=== PATIENT | female | born 1945 | race Caucasian/White ===

== ENCOUNTER 2018-10-22 09:35 | Inpatient (IN) | payer OTHER ==
[~2018-10-22] VITALS: Ht 172.7 cm; Wt 79.4 kg
--- NOTE | ~2018-10-22 | ST ---
[place], [place] EXERCISE STRESS TEST REPORT NAME: REINA CAPPS [facility] #: [id number] UNIT #: [id number] ROOM: 406 DOCTOR: EFREN BARNEY MD BIRTHDATE: [birth year] DOS: REASON FOR TESTING: Evaluation of chest pain. DESCRIPTION: After explaining procedure and obtaining consent, the patient was subjected to Lexiscan infusion. Resting heart rate was 67 with a blood pressure of 148/84. EKG showed sinus rhythm, nonspecific ST-T wave changes. The patient did have PACs on the monitor during the Lexiscan infusion. After the infusion was over, she was injected with Cardiolite and stress images were taken. The patient did complain of some chest heaviness and headaches during the infusion. No ST-T wave changes were noted. ASSESSMENT AND PLAN: Lexiscan stress test without any ST-T wave changes or arrhythmias. Cardiolite images pending. EFREN BARNEY MD CM:STRESS:EXERCISE STRESS TEST REPORT [id number] EFREN BARNEY MD
--- NOTE | ~2018-10-22 | EKG ---
[place], [place] ELECTROCARDIOGRAM REPORT NAME: REINA CAPPS UNIT #: [id number] ROOM: 406 DOCTOR: CLAIRE DRAFT REPORT BIRTHDATE: [birth year] [facility] Test Date: 2018-10-22 Test Time: 14:59:40 Pat Name: REINA CAPPS Department: Room: 406 Gender: F Hunter Guide: Viktoria Cabrera : 1945 Requested By: KATIE PARDO Order Number: [id number] Reading MD: Olesya Smith MD Measurements Intervals [place] Rate: 78 P: 25 [place]: 153 QRS: -58 QRSD: 85 T: 55 QT: 349 QTc: 398 Interpretive Statements Sinus rhythm Atrial premature complexes Abnormal R-wave progression, late transition Inferior infarct, old No previous ECG available for comparison Electronically Signed On 10-22-2018 17:04:02 PST by Olesya Smith MD CM:EKGRPT:ELECTROCARDIOGRAM REPORT [id number] KATIE RANGEL DRAFT REPORT KATIE PARDO MD
--- NOTE | ~2018-10-22 | WRIGHTHP ---
[place], [place] PATIENT HISTORY AND PHYSICAL EXAM NAME: REINA CAPPS [facility] #: [id number] UNIT #: [id number] ROOM: 406 DOCTOR: EFREN BARNEY MD BIRTHDATE: [birth year] DOS: 10/22/2018 HISTORY OF PRESENT ILLNESS: The patient is 73 years old, very well known to us. The patient states in the morning when she woke up, she noticed a burning feeling in her chest and in her back and she also became quite diaphoretic and had discussed a lot of concern and so she decided to come into the Emergency Room. She has had a slight cough, which is nonproductive. She has been multiple antibiotics recently. She denies having any retrosternal chest pain this morning. Does not have any shortness of breath or palpitations. She has a cough, which is slightly moist sounding. PAST MEDICAL HISTORY: Significant for: 1. Fibromyalgia. 2. Chronic cervical spinal stenosis. 3. Generalized anxiety disorder. 4. Benign hypertension. 5. Asthma, mild, intermittent. 6. History of Parks's esophagus. MEDICATIONS: She is currently on are Ultracet 37.5 mg 3 times a day p.r.n., Zyrtec 10 daily, lisinopril 30 daily, lorazepam 0.5 mg b.i.d. p.r.n., omeprazole 20 daily. SOCIAL HISTORY: Nonsmoker, does not use any alcohol. PHYSICAL EXAMINATION: GENERAL: She is awake, alert and oriented. VITAL SIGNS: Blood pressure was 170/100 when she arrived. The blood pressures have come down and normalized, pulse of 60, respirations 16, temperature 97.5. LUNGS: Diminished breath sounds. No wheezes, rales or rhonchi heard this morning. HEART: Regular. ABDOMEN: Obese, soft, nontender. EXTREMITIES: Without any edema. LABORATORY DATA: EKG showed sinus rhythm, nonspecific ST-T wave changes. White cell count is 8.3, hemoglobin 14.7. Protime within normal limits. Rapid flu negative. Comprehensive within normal limits. Chest x-ray, no pathology. ASSESSMENT AND PLAN: 1. The patient presents with precordial chest pain. Risk factors being hypertension. The patient is admitted. Rule out [place] protocol was ordered, since ruled out the patient is scheduled for a stress test. 2. Cough with burning discomfort in her chest with the recent usage of antibiotics. A CT of the chest will be ordered so far and has come back negative. The patient does have mild intermittent asthma, but this is not causing any exacerbation right now. If the stress test comes back negative, the patient will be discharged home. Follow up as an outpatient. No new prescriptions have been given. [place], [place] PATIENT HISTORY AND PHYSICAL EXAM NAME: REINA CAPPS UNIT #: [id number] ROOM: [facility] DOCTOR: EFREN BARNEY MD BIRTHDATE: [birth year] EFREN BARNEY MD CM:HISPHYS:PATIENT HISTORY AND PHYSICAL EXAMINATION 5 4 EFREN BARNEY MD 10/23/18924 interface
--- NOTE | ~2018-10-22 | EKG ---
[place], [place] ELECTROCARDIOGRAM REPORT NAME: REINA CAPPS UNIT #: [id number] ROOM: 406 DOCTOR: CLAIRE DRAFT REPORT BIRTHDATE: [birth year] [facility] Test Date: 2018-10-22 Test Time: 10:05:04 Pat Name: REINA CAPPS Department: Room: 406 Gender: F [employer]: : 1945 Requested By: GIN BOSS Order Number: [id number] Reading MD: Olesya Smith MD Measurements Intervals [place] Rate: 75 P: 50 [place]: 156 QRS: -67 QRSD: 89 T: 65 QT: 368 QTc: 411 Interpretive Statements Sinus rhythm Probable left atrial enlargement Abnormal R-wave progression, late transition Inferior infarct, old Baseline wander in lead(s) II No previous ECG available for comparison Electronically Signed On 10-22-2018 17:03:11 PST by Olesya Smith MD CM:EKGRPT:ELECTROCARDIOGRAM REPORT [id number] GIN SHIPMAN DRAFT REPORT GIN BOSS DO
[~2018-10-22 09:35] MED LIST: LEVOFLOXACIN500 MG PO; ZOFRAN4 MG PO
[2018-10-22 09:37] VITALS: BP 198/88
[2018-10-22 10:13] LABS: BASO % 0.4 % (0.0-1.0); EOS % 0.2 % (1.0-4.0); HEMATOCRIT 43.5 % (37.0-47.0); HEMOGLOBIN 14.7 g/dl (12.0-16.0); LYMPH # 1.7 10*3/uL (1.3-4.4); LYMPH % 19.9 % (27.0-41.0); MEAN CELL VOLUME 90.4 fl (81.0-99.0); MEAN CORPUSCULAR HGB 30.6 pg (27.0-31.0); MEAN CORPUSCULAR HGB CONC 33.8 g/dl (33.0-37.0); MEAN PLATELET VOLUME 9.3 fl (9.6-12.3); MONO # 0.7 10*3/uL (0.1-1.0); NEUT # 5.9 10*3/uL (2.3-7.9); NEUT % 71.3 % (47.0-73.0); PLATELET COUNT AUTOMATED 259 10*3/uL (130-400); RED BLOOD COUNT 4.81 10*6/uL (4.10-5.10); RED CELL DISTRI WIDTH 13.3 % (0-14.5); WHITE BLOOD COUNT 8.3 10*3/uL (4.8-10.8)
[2018-10-22 10:21] LABS: ACT PARTIAL THROMBO TIME 24.3 SECONDS (20.8-31.5); INTERNATIONAL NORM RATIO 0.9 (2.0-3.5)
[2018-10-22 10:29] LABS: BILIRUBIN NEGATIVE (NEGATIVE); BLOOD 1+ (NEGATIVE); CLARITY CLEAR (CLEAR); COLOR YELLOW (YELLOW); GLUCOSE NEGATIVE (NEGATIVE); KETONE TRACE (NEGATIVE); LEUKO ESTERASE NEGATIVE (NEGATIVE); NITRITE NEGATIVE (NEGATIVE); PH 6.5 (5.0-9.0); SPECIFIC GRAVITY 1.015 (1.005-1.030); UROBILINOGEN 0.2 E.U./dl (0.2-1.0)
[2018-10-22 10:36] LABS: ALBUMIN 3.9 gm/dl (3.1-4.5); ALKALINE PHOSPHATASE 54 U/L (45-117); BUN 10 mg/dl (7-24); CHLORIDE 97 mmol/L (98-107); CREATININE 0.71 mg/dL (0.55-1.02); POTASSIUM 3.7 mmol/L (3.5-5.1); SGOT/AST 12 IU/L (3-35); SGPT/ALT 14 U/L (12-78); SODIUM 132 mmol/L (136-145); TOTAL PROTEIN 7.2 gm/dL (6.4-8.2)
[2018-10-22 10:41] LABS: TROPONIN I < 0.015 ng/ml (<0.045)
[2018-10-22 10:52] LABS: RBC 16-20 rbc/hpf (0-2)
[2018-10-22 10:53] LABS: BACTERIA TRACE; EPITHELIAL CELLS 0-2; MUCOUS TRACE
[2018-10-22 12:00] VITALS: BP 170/100; BP 184/86; BP 184/88
[2018-10-22] MEDS ORDERED: ATIVAN0.5 MG PO (12:42)
[2018-10-22] MEDS ORDERED: LISINOPRIL30 MG PO (12:42)
[2018-10-22] MEDS ORDERED: ULTRACET 325 MG1 TA1 PO (12:43)
[2018-10-22] MEDS ORDERED: ZYRTEC10 MG PO (12:43)
[2018-10-22] MEDS ORDERED: OMEPRAZOLE20 M2 PO (12:43)
[2018-10-22 14:46] VITALS: BP 136/70
[2018-10-22 16:00] VITALS: BP 110/64
[2018-10-22 20:00] VITALS: BP 92/50
[2018-10-23] VITALS: BP 113/63
[2018-10-23 08:00] VITALS: BP 152/83
[2018-10-23 12:00] VITALS: BP 127/76; BP 130/72
== END 2018-10-23 16:24 | disposition home or self-care (01) | DRG 313 ==
LOC: ED 09:35 → 4E 11:09 → EDHOLD 11:09 → 4E 11:43
PROVIDERS: Emergency Medicine; Student in an Organized Health Care Education/Training Program; ADMIT Internal Medicine
PROC: 3E073KZ Introduction of Other Diagnostic Substance into Coronary Artery, Percutaneous Approach (ICD-10-PCS; principal; 2018-10-23)
PROC: 4A02XM4 Measurement of Cardiac Total Activity, External Approach (ICD-10-PCS; principal; 2018-10-23)
DX: R07.89 Other chest pain (principal); R09.1 Pleurisy; I10 Essential (primary) hypertension; E78.00 Pure hypercholesterolemia, unspecified; M79.7 Fibromyalgia; F41.1 Generalized anxiety disorder; J45.20 Mild intermittent asthma, uncomplicated; Z87.891 Personal history of nicotine dependence; Z90.49 Acquired absence of other specified parts of digestive tract; Z90.710 Acquired absence of both cervix and uterus; Z79.899 Other long term (current) drug therapy; Z88.0 Allergy status to penicillin; Z88.2 Allergy status to sulfonamides; Z82.49 Family history of ischemic heart disease and other diseases of the circulatory system; Z80.8 Family history of malignant neoplasm of other organs or systems; Z83.3 Family history of diabetes mellitus

== ENCOUNTER → 2019-03-28 | Outpatient (CLI) | payer OTHER ==
[~2019-03-28] MED LIST changes: +ATIVAN0.5 MG PO; +LISINOPRIL30 MG PO; +OMEPRAZOLE20 M2 PO; +ULTRACET 325 MG1 TA1 PO; +ZYRTEC10 MG PO
== END | disposition home or self-care (01) ==
LOC: RAD 11:05
DX: M25.551 Pain in right hip (principal)

== ENCOUNTER → 2019-04-22 | Outpatient (CLI) | payer OTHER ==
[2019-04-22 12:27] LABS: BASO % 0.3 % (0.0-1.0); EOS # 0.1 10*3/uL (0.0-0.4); EOS % 0.5 % (1.0-4.0); HEMATOCRIT 42.1 % (37.0-47.0); HEMOGLOBIN 13.6 g/dl (12.0-16.0); LYMPH # 2.3 10*3/uL (1.3-4.4); LYMPH % 23.6 % (27.0-41.0); MEAN CELL VOLUME 92.7 fl (81.0-99.0); MEAN CORPUSCULAR HGB CONC 32.3 g/dl (33.0-37.0); MEAN PLATELET VOLUME 9.6 fl (9.6-12.3); MONO # 0.8 10*3/uL (0.1-1.0); MONO % 8.4 % (3.0-9.0); NEUT # 6.4 10*3/uL (2.3-7.9); NEUT % 66.9 % (47.0-73.0); PLATELET COUNT AUTOMATED 306 10*3/uL (130-400); RED BLOOD COUNT 4.54 10*6/uL (4.10-5.10); RED CELL DISTRI WIDTH 12.8 % (0-14.5); WHITE BLOOD COUNT 9.6 10*3/uL (4.8-10.8)
[2019-04-22 12:57] LABS: ALBUMIN 3.9 gm/dl (3.1-4.5); ALKALINE PHOSPHATASE 52 U/L (45-117); BUN 11 mg/dl (7-24); CHLORIDE 99 mmol/L (98-107); CHOLESTEROL 275 mg/dL (<200); CREATININE 0.71 mg/dL (0.55-1.02); FREE T4 0.99 ng/dl (0.76-1.46); HDL CHOLESTEROL 78 mg/dl (40-60); LDL CHOLESTEROL 171 mg/dL (9-159); POTASSIUM 3.7 mmol/L (3.5-5.1); SGOT/AST 12 IU/L (3-35); SGPT/ALT 13 U/L (12-78); SODIUM 135 mmol/L (136-145); TOTAL PROTEIN 7.2 gm/dL (6.4-8.2); TRIGLYCERIDES 130 mg/dl (<150); VLDL CHOLESTEROL 26 mg/dL (6-40)
[2019-04-22 13:33] LABS: VITAMIN D, 25-HYDROXY 27.6 ng/mL (30-100)
== END | disposition home or self-care (01) ==
LOC: LAB 11:58
PROVIDERS: Internal Medicine
DX: Z13.220 Encounter for screening for lipoid disorders (principal); Z13.21 Encounter for screening for nutritional disorder; Z13.1 Encounter for screening for diabetes mellitus; I10 Essential (primary) hypertension; E78.2 Mixed hyperlipidemia; E55.9 Vitamin D deficiency, unspecified

== ENCOUNTER → 2019-05-01 | Outpatient (CLI) | payer OTHER | END | disposition home or self-care (01) | LOC: RAD 00:48 → MAMMO 14:00 | DX: M85.88 Other specified disorders of bone density and structure, other site (principal); Z78.0 Asymptomatic menopausal state ==

== ENCOUNTER → 2020-01-15 | Outpatient (CLI) | payer OTHER | END | disposition home or self-care (01) | LOC: CARD 10:03 | DX: R00.2 Palpitations (principal) ==

== ENCOUNTER → 2021-11-28 | Outpatient (CLI) | payer OTHER | END | disposition home or self-care (01) | LOC: MAMMO 00:10 | PROVIDERS: ATTEND Internal Medicine | DX: Z12.31 Encounter for screening mammogram for malignant neoplasm of breast (principal); Z78.0 Asymptomatic menopausal state ==

== ENCOUNTER → 2022-01-31 | Outpatient (CLI) | payer OTHER | END | disposition home or self-care (01) | LOC: US 00:39 | PROVIDERS: ATTEND Internal Medicine | DX: R42 Dizziness and giddiness (principal); R30.0 Dysuria ==

== ENCOUNTER → 2022-02-08 | Outpatient (CLI) | payer OTHER | END | disposition home or self-care (01) | LOC: MRI 00:36 | PROVIDERS: ATTEND Internal Medicine | DX: R41.82 Altered mental status, unspecified (principal) ==

== ENCOUNTER 2023-02-17 22:56 | Emergency (ER) | payer OTHER ==
[~2023-02-17] VITALS: Ht 167.6 cm; Wt 75.7 kg
[2023-02-17] MEDS ORDERED: CONZIP100 M1 PO (23:10)
[2023-02-17] MEDS ORDERED: HYDROXYZINE10 MG PO (23:10)
[2023-02-17] MEDS ORDERED: CARDIZEM30 MG PO (23:11)
[2023-02-17 23:28] LABS: BASO % 0.5 % (0.0-1.0); EOS # 0.1 10*3/uL (0.0-0.4); EOS % 0.6 % (1.0-4.0); HEMATOCRIT 40.3 % (37.0-47.0); LYMPH # 2.6 10*3/uL (1.3-4.4); LYMPH % 30.4 % (27.0-41.0); MEAN CELL VOLUME 86.9 fl (81.0-99.0); MEAN CORPUSCULAR HGB 29.7 pg (27.0-31.0); MEAN CORPUSCULAR HGB CONC 34.2 g/dl (33.0-37.0); MEAN PLATELET VOLUME 8.7 fl (9.6-12.3); MONO # 0.9 10*3/uL (0.1-1.0); NEUT # 4.9 10*3/uL (2.3-7.9); NEUT % 58.1 % (47.0-73.0); PLATELET COUNT AUTOMATED 288 10*3/uL (130-400); RED BLOOD COUNT 4.64 10*6/uL (4.10-5.10); RED CELL DISTRI WIDTH 14.4 % (0-14.5); WHITE BLOOD COUNT 8.5 10*3/uL (4.8-10.8)
[2023-02-17 23:43] LABS: ACT PARTIAL THROMBO TIME 28.5 SECONDS (20.0-32.1)
[2023-02-17 23:45] LABS: BILIRUBIN Negative (Negative); BLOOD Trace-Lysed (Negative); CLARITY Clear (Clear); COLOR Yellow (Yellow); GLUCOSE Negative (Negative); KETONE Negative (Negative); LEUKO ESTERASE 1+ (Negative); NITRITE Negative (Negative); PH 7.5 (4.5-8.0); SPECIFIC GRAVITY <= 1.005 (1.001-1.030); UROBILINOGEN 0.2 E.U./dl (0.0-1.0)
[2023-02-17 23:52] LABS: ALKALINE PHOSPHATASE 57 U/L (46-116); BUN 11 mg/dl (9-23); CHLORIDE 96 mmol/L (98-107); LIPASE 32 U/L (12-53); POTASSIUM 3.7 mmol/L (3.4-5.1); SGPT/ALT 10 U/L (10-49); TOTAL PROTEIN 6.8 gm/dL (6.0-8.0)
[2023-02-18 00:05] LABS: BACTERIA 1+; MUCOUS 1+
[2023-02-18 01:03] VITALS: BP 157/89
[2023-02-18] MEDS ORDERED: MACROBID100 M1 PO (01:46)
== END 2023-02-18 02:26 | disposition home or self-care (01) ==
LOC: ED 22:56
PROVIDERS: Internal Medicine
DX: F41.9 Anxiety disorder, unspecified (principal); N39.0 Urinary tract infection, site not specified; I10 Essential (primary) hypertension; Z88.0 Allergy status to penicillin; Z88.2 Allergy status to sulfonamides; Z90.49 Acquired absence of other specified parts of digestive tract; Z90.711 Acquired absence of uterus with remaining cervical stump; Z98.890 Other specified postprocedural states